=== PATIENT | male | born 1950 | race Caucasian/White ===

== ENCOUNTER 2019-01-02 12:51 | Emergency (ER) | payer MEDICARE ==
[2019-01-02] MEDS ORDERED: ACETAMINOPHEN 325 MG TAB ONE (13:25)
[2019-01-02] MEDS ORDERED: ONDANSETRON ODT 4 MG TAB ONE (14:20)
[2019-01-02] MEDS ORDERED: TRAMADOL HCL 50 MG TABLET ONE (14:20)
== END 2019-01-02 14:44 | disposition home or self-care (01) ==
LOC: EDH 12:51
DX: S62.305A Unspecified fracture of fourth metacarpal bone, left hand, initial encounter for closed fracture (principal); S62.307A Unspecified fracture of fifth metacarpal bone, left hand, initial encounter for closed fracture; I10 Essential (primary) hypertension; E78.00 Pure hypercholesterolemia, unspecified; W18.39XA Other fall on same level, initial encounter; Y93.89 Activity, other specified; Y92.89 Other specified places as the place of occurrence of the external cause; Y99.8 Other external cause status
CPT/HCPCS: 29125; 73130